=== PATIENT | male | born 1960 | race Asian ===

== ENCOUNTER 2022-04-11 10:39 | Emergency (ER) | payer MEDICAID ==
[~2022-04-11] VITALS: Ht 165.1 cm; Wt 61.4 kg
[2022-04-11] MEDS ORDERED: CLOT15CR29 TP ×2 (12:48→13:26)
[2022-04-11 13:17] VITALS: BP 115/67
== END 2022-04-11 13:35 | disposition home or self-care (01) ==
LOC: EMS 10:51
DX: B35.3 Tinea pedis (principal); E11.9 Type 2 diabetes mellitus without complications; E78.00 Pure hypercholesterolemia, unspecified; I10 Essential (primary) hypertension; Z98.890 Other specified postprocedural states
CPT/HCPCS: 99282; Z7502